=== PATIENT | female | born 1960 | race Caucasian/White ===

== ENCOUNTER → 2023-08-31 09:10 | Outpatient (REF) | payer OTHER, SELFPAY | LOC: RAD 09:10 | PROVIDERS: ATTENDING PHYSICIAN Physician Assistant; FAMILY PHYSICIAN Physician Assistant Medical | DX: M79.671 Pain in right foot (principal); M79.672 Pain in left foot | CPT/HCPCS: 73630 ==

== ENCOUNTER 2023-09-04 07:10 | Day surgery (SDC) | payer OTHER, SELFPAY ==
[2023-09-04 07:52] VITALS: BMI 31.1
== END 2023-09-04 09:30 | disposition home or self-care (01) ==
LOC: CATH 07:10
PROVIDERS: ATTENDING PHYSICIAN Internal Medicine Cardiovascular Disease; FAMILY PHYSICIAN Physician Assistant Medical
DX: I08.1 Rheumatic disorders of both mitral and tricuspid valves (principal); Z86.16 Personal history of COVID-19; Z86.718 Personal history of other venous thrombosis and embolism; K21.9 Gastro-esophageal reflux disease without esophagitis
CPT/HCPCS: 93312; 93320; 93325

== ENCOUNTER 2023-10-03 07:32 | Day surgery (SDC) | payer OTHER, SELFPAY ==
[2023-10-01 08:33] VITALS: BMI 31.0
[2023-10-01 08:59] LABS: % Basophils 0.6 % (0-2); % Eosinophils 2.3 % (0-6); % Immature Granulocytes 0.4 % (0-0.5); % Monocytes 7.1 % (1.7-9.3); % Neutrophils 62.6 % (42.2-75.2); Absolute Eosinophils 0.1 10^3/uL (0-0.7); Absolute Lymphocytes 1.4 10^3/uL (1.2-3.4); Absolute Monocytes 0.4 10^3/uL (0.1-0.6); Absolute Neutrophils 3.3 10^3/uL (1.4-6.5); Hematocrit 39.5 % (37.0-47.0); Hemoglobin 13.1 g/dL (12.0-16.0); Mean Corp Hgb Conc. 33.2 g/dL (33.0-37.0); Mean Corpuscular Hgb 30.9 pg (27.0-31.0); Mean Corpuscular Volume 93.2 fL (81.0-99.0); Nucleated Red Blood Cells % 0 %; Red Blood Cell Count 4.24 10^6/uL (4.20-5.40); Red Cell Dist. Width 13.2 % (11.5-14.5); White Blood Cell Count 5.2 10^3/uL (4.8-10.8)
[2023-10-01 09:17] LABS: ALT (SGPT) 21 U/L (0-35); AST (SGOT) 23 U/L (14-36); Albumin 4.4 g/dl (3.5-5.0); Alkaline Phosphatase 50 U/L (38-126); Blood Urea Nitrogen 18 mg/dl (7-17); Calcium 9.5 mg/dl (8.4-10.2); Carbon Dioxide 28 mmol/L (22-30); Chloride 105 mmol/L (98-107); Estimated Creatinine Clearance 75 ml/min; Glucose 85 mg/dl (70-99); Sodium 138 mmol/L (135-145); Total Bilirubin 0.8 mg/dl (0.2-1.3); Total Protein 7.2 g/dl (6.3-8.2); eGFR > 60.00
[2023-10-03] VITALS (12 sets, daily range): BP systolic 119–134; BP diastolic 64–86
[2023-10-03] MEDS: NSS 245 ML IV (08:14)
--- NOTE | 2023-10-03 08:56 | ITS.CL.CATH ---
[employer] - Catheterization
Cardiac Catheterization
Procedure Report:
CARDIAC CATHETERIZATION REPORT
Date of Procedure: 10/03/2023
Referring: Austin Barton M.D.
INDICATION: Severe mitral valve regurgitation
PROCEDURE:
1. Left heart catheterization.
2. Coronary angiography.
ACCESS:
6 Tamazight right radial artery.
CATHETERS:
1. 5 Tamazight JR4.
2. 5 Tamazight JL 3.5.
HEMODYNAMIC DATA
Weight (kg):����������������������������� 81.6
AO (s/d/x, mmHg): ������������������� 121/78/97
LV (s/x mmHg): ����������������������� 122/12
LEFT VENTRICULOGRAPHY: � Not performed
CORONARY ANGIOGRAPHY
Dominance: ���������������� ����������� Right.
Left Main: �������������������������������� Normal size, bifurcating vessel. There is no coronary artery disease.
LAD: ��������������������������� ����������� Normal size vessel giving rise to 2 diagonals. There is no coronary artery disease.
Ramus:������������������������ ����������� Congenitally absent.��������
Circumflex: ������������������ ����������� Large size, nondominant vessel giving rise to 2 significant marginals followed by a left posterolateral branch. There is no coronary artery disease.
RCA: �������������������������� ����������� Normal size, dominant vessel. There is no coronary artery disease.
INTERVENTION(S)
None.
Closure Device: ����������������������� Vascular band.
Radiation (mGy): ��������������������� 278.64
DAP (cm2.Gy): ������������ ����������� 24.0101
Fluoroscopy time (minutes):������ 2.1
Sedation time (minutes):����������� 8
CONCLUSIONS
1.� Right dominant circulation with no coronary artery disease.
2.� Normal filling pressures (LVEDP = 12 mmHg at 81.6 kg).
3. Severe, symptomatic primary mitral valve regurgitation on transesophageal echocardiogram.
RECOMMENDATIONS:
1. Expectant management after cardiac catheterization via right radial approach.
2. Limited weight bearing on the right wrist for one week.
3. Stable for outpatient evaluation and follow-up with cardiology and CT surgery regarding intended surgical mitral valve repair.
Copy to: Austin Barton M.D., Eliseo Montgomery M.D.
Vinicio Aguirre DO, FACC, FACP
== END 2023-10-03 11:53 | disposition home or self-care (01) ==
LOC: CATH 07:32
PROVIDERS: ATTENDING PHYSICIAN Internal Medicine Cardiovascular Disease; FAMILY PHYSICIAN Physician Assistant Medical; OTHER PHYSICIAN Internal Medicine Cardiovascular Disease
DX: I34.1 Nonrheumatic mitral (valve) prolapse (principal); I34.0 Nonrheumatic mitral (valve) insufficiency; R06.02 Shortness of breath; E78.5 Hyperlipidemia, unspecified; G47.33 Obstructive sleep apnea (adult) (pediatric); K21.9 Gastro-esophageal reflux disease without esophagitis; E03.9 Hypothyroidism, unspecified
CPT/HCPCS: 36415; 80053; 85025; 93005; 93458; C1894; Q9967

== ENCOUNTER → 2023-11-01 11:12 | Outpatient (REF) | payer OTHER, SELFPAY | LOC: RAD 11:12 | PROVIDERS: ATTENDING PHYSICIAN Nurse Practitioner Acute Care; FAMILY PHYSICIAN Physician Assistant Medical | DX: Z01.810 Encounter for preprocedural cardiovascular examination (principal) | CPT/HCPCS: 71275; 74174; Q9967 ==

== ENCOUNTER → 2023-12-25 13:49 | Outpatient (REF) | payer OTHER, SELFPAY | LOC: HWRCS 13:49 | PROVIDERS: ATTENDING PHYSICIAN Internal Medicine Cardiovascular Disease; FAMILY PHYSICIAN Physician Assistant Medical | DX: I34.1 Nonrheumatic mitral (valve) prolapse (principal); I34.0 Nonrheumatic mitral (valve) insufficiency; R00.2 Palpitations; R06.02 Shortness of breath; Z98.890 Other specified postprocedural states; I48.0 Paroxysmal atrial fibrillation | CPT/HCPCS: 93306 ==

== ENCOUNTER → 2024-01-21 14:51 | Outpatient (REF) | payer OTHER, SELFPAY | LOC: HWRAD 14:51 | PROVIDERS: ATTENDING PHYSICIAN Internal Medicine Rheumatology; FAMILY PHYSICIAN Physician Assistant Medical | DX: M81.0 Age-related osteoporosis without current pathological fracture (principal) | CPT/HCPCS: 77080 ==

== ENCOUNTER 2024-01-30 11:11 | Outpatient (RCR) | payer OTHER, SELFPAY | END 2024-01-30 23:59 | disposition home or self-care (01) | LOC: CRHB 11:11 | PROVIDERS: ATTENDING PHYSICIAN Internal Medicine Cardiovascular Disease; FAMILY PHYSICIAN Physician Assistant Medical | DX: Z95.4 Presence of other heart-valve replacement (principal) | CPT/HCPCS: 93668; 93798 ==

== ENCOUNTER 2024-02-29 13:40 | Outpatient (RCR) | payer OTHER, SELFPAY | END 2024-02-29 23:59 | disposition home or self-care (01) | LOC: CRHB 13:40 | PROVIDERS: ATTENDING PHYSICIAN Internal Medicine Cardiovascular Disease; FAMILY PHYSICIAN Physician Assistant Medical | DX: Z95.4 Presence of other heart-valve replacement (principal) | CPT/HCPCS: 93797; 93798; G0422; G0423 ==

== ENCOUNTER 2024-03-12 11:37 | Outpatient (RCR) | payer OTHER, SELFPAY | END 2024-03-12 23:59 | disposition home or self-care (01) | LOC: CRHB 11:37 | PROVIDERS: ATTENDING PHYSICIAN Internal Medicine Cardiovascular Disease; FAMILY PHYSICIAN Physician Assistant Medical | DX: Z95.4 Presence of other heart-valve replacement (principal) | CPT/HCPCS: 93797; 93798 ==

== ENCOUNTER → 2024-04-29 10:31 | Outpatient (REF) | payer OTHER, SELFPAY | LOC: WDC 10:31 | PROVIDERS: ATTENDING PHYSICIAN Obstetrics & Gynecology Gynecology; FAMILY PHYSICIAN Physician Assistant Medical | DX: Z12.31 Encounter for screening mammogram for malignant neoplasm of breast (principal); Z80.3 Family history of malignant neoplasm of breast | CPT/HCPCS: 77063; 77067 ==

== ENCOUNTER → 2024-08-20 10:00 | Outpatient (REF) | payer OTHER, SELFPAY | LOC: WDC 10:00 | PROVIDERS: ATTENDING PHYSICIAN Obstetrics & Gynecology Gynecology; FAMILY PHYSICIAN Physician Assistant Medical | DX: R92.2 Inconclusive mammogram (principal) | CPT/HCPCS: 76641 ==

== ENCOUNTER → 2024-08-28 10:14 | Outpatient (REF) | payer OTHER, SELFPAY | LOC: RCS 10:14 | PROVIDERS: ATTENDING PHYSICIAN Internal Medicine Cardiovascular Disease | DX: R00.2 Palpitations (principal); I48.0 Paroxysmal atrial fibrillation; I47.10 Supraventricular tachycardia, unspecified; R53.83 Other fatigue; R06.02 Shortness of breath | CPT/HCPCS: 93306 ==

== ENCOUNTER → 2024-09-26 15:12 | Outpatient (REF) | payer OTHER, SELFPAY | LOC: HWRAD 15:12 | PROVIDERS: ATTENDING PHYSICIAN Internal Medicine Cardiovascular Disease; FAMILY PHYSICIAN Physician Assistant Medical | DX: R06.02 Shortness of breath (principal) | CPT/HCPCS: 71046 ==

== ENCOUNTER 2024-11-17 18:02 | Outpatient (RCR) | payer OTHER, SELFPAY | END 2024-11-17 23:59 | disposition home or self-care (01) | LOC: RPT 18:02 | PROVIDERS: ATTENDING PHYSICIAN Internal Medicine Rheumatology; FAMILY PHYSICIAN Physician Assistant Medical | DX: M70.62 Trochanteric bursitis, left hip (principal); M70.61 Trochanteric bursitis, right hip; M54.16 Radiculopathy, lumbar region; Z73.6 Limitation of activities due to disability | CPT/HCPCS: 97110; 97162 ==

== ENCOUNTER → 2024-12-09 14:17 | Outpatient (REF) | payer OTHER, SELFPAY | LOC: HWRAD 14:17 | PROVIDERS: ATTENDING PHYSICIAN Physician Assistant; FAMILY PHYSICIAN Physician Assistant Medical | DX: R30.0 Dysuria (principal) | CPT/HCPCS: 76770 ==

== ENCOUNTER 2025-01-29 06:57 | Day surgery (SDC) | payer OTHER, SELFPAY ==
[2025-01-19 10:07] VITALS: BMI 29.5
[2025-01-19 10:29] LABS: Hematocrit 41.4 % (37.0-47.0); Hemoglobin 13.7 g/dL (12.0-16.0); Mean Corp Hgb Conc. 33.1 g/dL (33.0-37.0); Mean Corpuscular Volume 93.2 fL (81.0-99.0); Nucleated Red Blood Cells % 0 %; Platelet Count 188 10^3/uL (130-400); Red Cell Dist. Width 13.8 % (11.5-14.5)
[2025-01-19 10:36] LABS: INR 1.01; PT 13.6 Sec (11.4-14.6)
[2025-01-19 10:50] LABS: ALT (SGPT) 31 U/L (0-35); AST (SGOT) 18 U/L (14-36); Albumin 4.1 g/dl (3.5-5.0); Alkaline Phosphatase 50 U/L (38-126); Blood Urea Nitrogen 15 mg/dl (7-17); Calcium 9.4 mg/dl (8.4-10.2); Carbon Dioxide 32 mmol/L (22-30); Chloride 104 mmol/L (98-107); Estimated Creatinine Clearance 70 ml/min; Glucose 86 mg/dl (70-99); Magnesium 2.0 mg/dl (1.6-2.3); Potassium 3.9 mmol/L (3.5-5.1); Sodium 138 mmol/L (135-145); Total Protein 6.9 g/dl (6.3-8.2); eGFR > 60.00
[2025-01-29] VITALS (17 sets, daily range): BP systolic 82–115; BP diastolic 34–93
[2025-01-29 11:21] LABS: ACT-LR - POC 308 Seconds (116-155)
[2025-01-29 11:38] LABS: ACT-LR - POC 305 Seconds (116-155)
--- NOTE | 2025-01-29 12:36 | ITS.CL.ABL ---
[employer] - Ablation
Ablation
Procedure Report:
ELECTROPHYSIOLOGY ABLATION STUDY
DATE:: January 29, 2025�����������������������������REFERRING: Dr. Austin Barton
INDICATION: Paroxysmal supraventricular tachycardia in the form of atrial fibrillation.��Prior history of mitral valve repair at [facility] with postoperative atrial fibrillation and atypical atrial flutter. She also describes abrupt onset offset
tachycardia as well which comes on with change in position. Review of her prior tracings does also suggest a possible third mechanism of a short RP tachycardia.
HISTORY: See H and P.� As above
ANTIARRHYTHMIC DRUG: Carvedilol
PRE-PROCEDURE SAMMI: No intracardiac thrombus with intact mitral valve repair and trace mitral rotation by intracardiac ultrasound
PRESENTING RHYTHM: Sinus bradycardia with spontaneous supraventricular tach arrhythmia 410 ms narrow complex with the VA time of 0 ms
'TIME-OUT':��called and confirmed.
SEDATION/ANESTHESIA:��provided via the anesthesia department using general anesthesia (LMA).
INTRAVENOUS/ARTERIAL ACCESS:
Right femoral venous -8Fr
Left femoral venous - 8 Fr, 6 Fr
Ultrasound guidance for bilateral femoral vein access was utilized by me to obtain access with demonstration of normal anatomy
CHADS-VASC Score:
HAS-Bled Score
PROCEDURE:
1.��A decapolar CS catheter was placed within the CS for mapping and pacing.��This was also used as the reference catheter for the 3-D map. The patient had incessant short RP tachycardia with the VA time of 0 and narrow complex at 400 ms. With any
extrastimuli or delivering PFA lesions tachycardia was inducible. The tachycardia could be reliably overdrive paced and trained as well as terminated from both atrium and ventricle. VAV and SOTERO responses were noted we could reliably terminate the
tachycardia in the AV node without activating the opposite chamber. PPI was shortest near the AV node with PPI greater than tachycardia cycle length of greater than 105 ms from the left atrium and base of the left ventricle. As such we performed
slow pathway modification with a 4 mm sapphire at 50 W, 52 degrees and up to 32nd lesions with atypical junctional beats. Preablation the patient was incessant and post ablation the patient was noninducible for AV jaya reentry tachycardia
throughout a 20-minute waiting period
2. The intracardiac ultrasound catheter was positioned in the RA to identify the FO for targeting of transseptal puncture, assist��in identification of the pulmonary vein ostia, monitoring pre and post ablation pulmonary vein flow velocities,
monitoring for 'bubble' formation during RF application as a sign of thermal injury,��and to monitor for pericardial effusion during mapping and ablation procedure.���Left atrial size, LV ejection fraction, and pulmonary vein flows were monitored
pre and post ablation procedure. The other valves were inspected and found to be free of significant regurgitation or stenosis. Trace mitral regurgitation from the prior mitral valve ring was noted pre and post procedure. There is no pericardial
effusion pre and post procedure.
3.��Half of the calculated heparin bolus was administered prior to the first transeptal puncture.��Transseptal puncture was performed to diagnose RA and LA pressure so that safety of LA mapping and ablation could be further assessed, and to access
the left atrium and pulmonary veins for mapping and ablation.��This entailed advancing an 10fr with dilator into the superior vena cava and withdrawing both (monitoring intracardiac ultrasound, fluoroscopy and tip pressure) with the tip oriented
toward the atrial septum.��The fossa ovalis was engaged (indicated by sudden displacement of the sheath tip as well as tenting of the fossa seen on intracardiac ultrasound).��Left atrial access required a pass with the Brock[place]rough needle
extended.��Left atrial catheter position was confirmed by pressure monitoring (RA mean pressure 2 mm Hg and LA mean pressure 6 mm Hg), LA saturation (99%),��as well as fluoroscopy.��The sheath was advanced over the dilator and positioned in the left
atrium.��This procedure was repeated for the Agilis sheath.��The remainder of the calculated heparin bolus was administered and heparin was
infused to maintain ACT at 300 -350 seconds throughout the case.
4.��RA pacing was performed via the proximal decapolar poles and LA pacing was performed via the distal decapolr poles.
5. A quadrapolar catheter was first positioned at the His position for His Bundle recording which was tagged via the 3-D Navex sytem, and then passed to the RVA for RV pacing and recording.
6. The 9mm lattice was placed in each of the LIPV, LSPV, RSPV and the RIPV.��
7.��Next, a 3-D map was created using Navex.���A 3-D reconstructed CT image was compared to the 3-D Navex map to assist in anatomic interpretation, mapping and ablation.��The CT image and the NavX image were fused.
8. We performed pulmonary vein isolation and left atrial posterior wall isolation first after Gorman septal puncture as above with the 9 mm lightest catheter and PFA lesions with wide circumferential ablation around the left and right veins and then
a posterior wall box lesion set rendering entrance and exit block in all 4 pulmonary veins as well as the posterior wall. The patient's short RP tachycardia was incessant throughout and required multiple pace termination's while we finished the
left atrial portion of the procedure. We also performed rapid burst pacing below AV jaya ERP and were unable to induce any other tachyarrhythmia beyond the PVI, posterior wall isolation and slow pathway modification.
9. Normal sinus node and AV node function noted postprocedure.
TOTAL RF DURATION: 12.1 minutes
REVERSAL OF HEPARIN: 35 mg of protamine, slow IV administration
COMPLICATIONS:
None
Intracardiac US shows no pericardial effusion post ablation.
SUMMARY:��
Complex left atrial mapping and ablation.
PVI with entrance and exit block in all 4 pulmonary veins. Left atrial posterior wall isolation with posterior proximal lesion set with PFA rendering entrance next block. Readily inducible and incessant short RP tachycardia diagnosis AV jaya
reentry tachycardia which is noninducible after nonirrigated radiofrequency ablation and slow pathway modification.
RECOMMENDATIONS:
1. Ambulate in 4 hours
2. Resume anticoagulation
3.� Coreg 3.125 twice daily
4.��Consider same-day discharge
Copy to: Dr. Barton
[2025-01-29] MEDS: SUBLIMAZE 25 MCG IV (14:00)
--- NOTE | 2025-01-29 16:39 | W.PN.UPDATE ---
Update Note
Progress Note Update
64 yo WF s/p PVI, AVNRT ablation (same day). She initially had some chest heaviness and groin tenderness, which improved with suture removal, groin soft, no HT c/d/i. EKG SR. Activity restrictions reviewed. She will resume Eliquis tonight. She will
f/u Dr. Barton in 2 weeks. She is for d/c home after 5p if groin stable and voiding.
[2025-01-29] MEDS: ANESTHETIC LOZENGE 1 LOZENGE PO (16:51)
== END 2025-01-29 17:20 | disposition home or self-care (01) ==
LOC: CATH 06:57
PROVIDERS: ATTENDING PHYSICIAN Internal Medicine Cardiovascular Disease; FAMILY PHYSICIAN Physician Assistant Medical; REFERRING PHYSICIAN Internal Medicine Cardiovascular Disease
DX: I48.0 Paroxysmal atrial fibrillation (principal); I47.19 Other supraventricular tachycardia; I10 Essential (primary) hypertension; E78.5 Hyperlipidemia, unspecified; G47.33 Obstructive sleep apnea (adult) (pediatric); Z87.440 Personal history of urinary (tract) infections; M19.90 Unspecified osteoarthritis, unspecified site; Z86.718 Personal history of other venous thrombosis and embolism; F41.9 Anxiety disorder, unspecified; F32.A Depression, unspecified; K21.9 Gastro-esophageal reflux disease without esophagitis; E03.9 Hypothyroidism, unspecified; Z79.899 Other long term (current) drug therapy; Z79.890 Hormone replacement therapy; Z79.85 Long-term (current) use of injectable non-insulin antidiabetic drugs; Z79.01 Long term (current) use of anticoagulants; Z88.0 Allergy status to penicillin; Z88.1 Allergy status to other antibiotic agents; Z88.2 Allergy status to sulfonamides
CPT/HCPCS: C1894; C1730; C1766; C1892; C1733 ×2; C1759; 36415; 75572; 80053; 83735; 85025; 85347; 85610; 86850; 86900; 86901; 93005; 93655; 93656; 93657; Q9967

== ENCOUNTER → 2025-03-05 15:01 | Outpatient (REF) | payer OTHER, SELFPAY | LOC: PAVMRI 15:01 | PROVIDERS: ATTENDING PHYSICIAN Specialist; FAMILY PHYSICIAN Physician Assistant Medical | DX: M25.551 Pain in right hip (principal) | CPT/HCPCS: 73721 ==

== ENCOUNTER → 2025-04-30 10:26 | Outpatient (REF) | payer OTHER, SELFPAY | LOC: HWWDC 10:26 | PROVIDERS: ATTENDING PHYSICIAN Obstetrics & Gynecology Gynecology; FAMILY PHYSICIAN Physician Assistant Medical | DX: Z12.31 Encounter for screening mammogram for malignant neoplasm of breast (principal) | CPT/HCPCS: 77063; 77067 ==

== ENCOUNTER → 2025-05-12 14:45 | Outpatient (REF) | payer OTHER, SELFPAY | LOC: PAVMRI 14:45 | PROVIDERS: ATTENDING PHYSICIAN Otolaryngology; FAMILY PHYSICIAN Physician Assistant Medical | DX: R26.89 Other abnormalities of gait and mobility (principal) | CPT/HCPCS: 70553; A9575 ==